=== PATIENT | male | born 1990 ===

== ENCOUNTER 2017-04-22 03:12 | Emergency (ER) | payer MEDICAID ==
[2017-04-22 03:24] VITALS: BMI 39.0
[2017-04-22 03:26] VITALS: TEMP 98.2
--- NOTE | 2017-04-22 03:38 | ED PDOC ---
- ECG O2 Sat by Pulse Oximetry: 99 Disposition - Disposition
--- NOTE | 2017-04-22 03:42 | ED PDOC ---
HPI: Psych/Substance Abuse Time Seen by Provider: 04/22/17 03:30 Chief Complaint (Nursing): Anxiety Chief Complaint (Provider): anxiety History Per: Patient History/Exam Limitations: no limitations Onset/Duration Of Symptoms: Hrs (2) Current Symptoms Are (Timing): Still Present Additional History Per: Patient Additional Complaint(s): 26 y/o male no past medical history presents with feeling anxious x 2 hours. Patient states symptoms started while he was playing video games, about an hour after he took what he thought was 20mg oxycodone that he bought off the street for left "Radial nerve pain" he has been having. Patient describes symptoms as feeling "jittery" with intermittent nausea. Denies fever, headache, dizziness, chest pain, shortness of breath, palpitations, abdominal pain, suicidal/ homicidal ideations, depression. Past Medical History Reviewed: Historical Data, Nursing Documentation, Vital Signs Vital Signs: Last Vital Signs Temp 98.2 F 04/22/17 03:24 Pulse 108 H 04/22/17 03:24 Resp 16 04/22/17 03:24 BP 132/78 04/22/17 03:24 Pulse Ox 99 04/22/17 03:24 - Medical History PMH: No Chronic Diseases - Surgical History Surgical History: No Surg Hx - Family History Family History: States: No Known Family Hx - Social History Current smoker - smoking cessation education provided: No Alcohol: None Drugs: Opiates - Immunization History Hx Tetanus Toxoid Vaccination: Yes (2013) - Home Medications Home Medications: Ambulatory Orders Medication Instructions Recorded RX: No Known Home Med 05/23/15 - Allergies Allergies/Adverse Reactions: Allergies Allergy/AdvReac Type Severity Reaction Status Date / Time No Known Allergies Allergy Verified 04/22/17 03:24 Review of Systems ROS Statement: Except As Marked, All Systems Reviewed And Found Negative Psych: Positive for: Anxiety Physical Exam - Reviewed Nursing Documentation Reviewed: Yes Vital Signs Reviewed: Yes - Physical Exam Appears: Positive for: Well, Non-toxic, Uncomfortable (anxious) Head Exam: Positive for: ATRAUMATIC, NORMAL INSPECTION, NORMOCEPHALIC Skin: Positive for: Normal Color Eye Exam: Positive for: Normal appearance, EOMI ENT: Positive for: Normal ENT Inspection Cardiovascular/Chest: Positive for: Regular Rate, Rhythm Respiratory: Positive for: Normal Breath Sounds Gastrointestinal/Abdominal: Positive for: Normal Exam Back: Positive for: Normal Inspection Extremity: Positive for: Normal ROM Neurologic/Psych: Positive for: Alert, Oriented - ECG ECG: Positive for: Viewed By Me (reviewed by ED attending) ECG Rhythm: Positive for: Sinus Rhythm O2 Sat by Pulse Oximetry: 99 Pulse Ox Interpretation: Normal - Progress ED Course And Treament: ekg, uds, zofran po On re-eval, patient states symptoms improving. Tolerating PO. Patient educated on findings, discharged with instructions to follow up PMD 2-3 days. Return to ED for worsening/concerning symptoms. Disposition - Clinical Impression Clinical Impression: Anxiety, Polysubstance abuse - Patient ED Disposition Is Patient to be Admitted: No Counseled Patient/Family Regarding: Studies Performed, Diagnosis, Need For Followup - Disposition Referrals: Luis Miguel Montilla MD [Primary Care Provider] - Disposition: Routine/Home Disposition Time: 05:16 Condition: IMPROVED Instructions: Anxiety (ED), Polysubstance Abuse (ED)
[2017-04-22 05:24] VITALS: BP 133/78; PULSE 86; RESP 17; O2SAT 100
--- NOTE | 2017-04-22 12:38 | CARD ---
APPROVED REPORT EKG Measurement Heart [id number] <Conclusion> Normal sinus rhythm Normal ECG
== END 2017-04-22 05:20 | disposition home or self-care (01) ==
LOC: H.ER 03:12
DX: F41.9 Anxiety disorder, unspecified (principal); F19.10 Other psychoactive substance abuse, uncomplicated

== ENCOUNTER 2017-05-23 07:31 | Emergency (ER) | payer MEDICAID ==
[2017-05-23 07:40] VITALS: BP 112/69; PULSE 85; RESP 16; TEMP 98; O2SAT 98; BMI 38.0
--- NOTE | 2017-05-23 08:00 | ED PDOC ---
HPI: CCC, URI, Sore Throat Time Seen by Provider: 05/23/17 07:41 Chief Complaint (Provider): Cough History Per: Patient History/Exam Limitations: no limitations Onset/Duration Of Symptoms: Days (x2) Current Symptoms Are (Timing): Still Present Sick Contacts (Context): None Additional Complaint(s): Tomasz is a 26 y/o male who presents to the ED complaining of a sore throat, cough, and congestion, since yesterday. He also reports post-tussive vomiting and chest pain associated with his cough. Patient took Dayquil with no relief. Denies any associated shortness of breath, headache, dizziness. PMD: Provider TBD Past Medical History Reviewed: Historical Data, Nursing Documentation, Vital Signs Vital Signs: Last Vital Signs Temp 98.0 F 05/23/17 07:39 Pulse 85 05/23/17 07:39 Resp 16 05/23/17 07:39 BP 112/69 05/23/17 07:39 Pulse Ox 98 05/23/17 08:12 - Medical History PMH: No Chronic Diseases - Surgical History Surgical History: No Surg Hx - Family History Family History: States: Unknown Family Hx - Social History Current smoker - smoking cessation education provided: No Alcohol: None Drugs: Cannabis - Immunization History Hx Tetanus Toxoid Vaccination: Yes (2013) - Home Medications Home Medications: Ambulatory Orders Medication Instructions Recorded Benzonatate [Tessalon Perles] 100 mg PO BID PRN 5 Days sgl 05/23/17 Ibuprofen [Motrin] 600 mg PO TID 7 Days tab 05/23/17 - Allergies Allergies/Adverse Reactions: Allergies Allergy/AdvReac Type Severity Reaction Status Date / Time No Known Allergies Allergy Verified 04/22/17 03:24 Review of Systems Constitutional: Negative for: Fever, Chills, Weakness ENT: Positive for: Nose Congestion, Throat Pain Cardiovascular: Positive for: Chest Pain (with cough) Respiratory: Positive for: Cough. Negative for: Shortness of Breath Gastrointestinal: Positive for: Nausea, Vomiting (after coughing). Negative for : Diarrhea Neurological: Negative for: Weakness, Numbness, Headache, Dizziness Physical Exam - Reviewed Nursing Documentation Reviewed: Yes Vital Signs Reviewed: Yes - Physical Exam Appears: Positive for: Non-toxic, No Acute Distress Head Exam: Positive for: ATRAUMATIC, NORMAL INSPECTION, NORMOCEPHALIC Skin: Positive for: Normal Color, Warm, Dry Eye Exam: Positive for: EOMI, Normal appearance, PERRL ENT: Positive for: Nasal Congestion. Negative for: Pharyngeal Erythema, Tonsillar Exudate Neck: Positive for: Normal, Painless ROM, Supple Cardiovascular/Chest: Positive for: Regular Rate, Rhythm. Negative for: Murmur Respiratory: Positive for: Normal Breath Sounds. Negative for: Accessory Muscle Use, Respiratory Distress Gastrointestinal/Abdominal: Positive for: Normal Exam, Soft. Negative for: Tenderness Back: Positive for: Normal Inspection. Negative for: L CVA Tenderness, R CVA Tenderness, Vertebral Tenderness Extremity: Positive for: Normal ROM. Negative for: Tenderness, Pedal Edema, Deformity Neurologic/Psych: Positive for: Alert, Oriented. Negative for: Motor/Sensory Deficits - ECG O2 Sat by Pulse Oximetry: 98 (RA) Pulse Ox Interpretation: Normal Medical Decision Making Medical Decision Making: Time: 7:48 Initial Plan: --Motrin 600 mg PO --Tessalon Perles 100 mg PO Clinical Impression: URI Upon provider evaluation patient is medically stable, and requires no further treatment in the ED at this time. Patient will be discharged with Rx's for Motrin and Tessalon Perles. Counseling was provided and all questions were answered regarding diagnosis and need for follow up with PMD. There is agreement to discharge plan. Return if symptoms persist or worsen. Able to swallow with no issues. Scribe Attestation: Documented by Maribell Hicks, acting as a scribe for Ghulam Miner MD Provider Scribe Attestation: All medical record entries made by the Scribe were at my direction and personally dictated by me. I have reviewed the chart and agree that the record accurately reflects my personal performance of the history, physical exam, medical decision making, and the department course for this patient. I have also personally directed, reviewed, and agree with the discharge instructions and disposition. Disposition - Clinical Impression Clinical Impression: URI (upper respiratory infection) - Patient ED Disposition Is Patient to be Admitted: No Counseled Patient/Family Regarding: Diagnosis, Need For Followup, Rx Given - Disposition Referrals: [facility] [Outside] - 05/25/17 Disposition: Routine/Home Disposition Time: 07:48 Condition: STABLE Additional Instructions: Return if not better in 3 days. Prescriptions: Benzonatate [Tessalon Perles] 100 mg PO BID PRN 5 Days sgl PRN Reason: Cough Ibuprofen [Motrin] 600 mg PO TID 7 Days tab Instructions: Upper Respiratory Infection (ED) Forms: [employer] [facility] (Welsh)
== END 2017-05-23 08:15 | disposition home or self-care (01) ==
LOC: H.ER 07:31
DX: J06.9 Acute upper respiratory infection, unspecified (principal)

== ENCOUNTER 2017-08-10 22:18 | Emergency (ER) | payer MEDICAID ==
[2017-08-10 22:18] VITALS: BMI 38.0
[2017-08-10 22:23] VITALS: RESP 16; O2SAT 100
--- NOTE | 2017-08-10 23:04 | ED PDOC ---
- ECG O2 Sat by Pulse Oximetry: 100 Disposition - Disposition
[2017-08-10] MEDS ORDERED: Sodium Chloride 0.9% 1,000 ML IV STA (23:11)
--- NOTE | 2017-08-10 23:22 | ED PDOC ---
HPI: Psych/Substance Abuse Time Seen by Provider: 08/10/17 22:56 Chief Complaint (Nursing): Anxiety Chief Complaint (Provider): anxiety History Per: Patient History/Exam Limitations: no limitations Onset/Duration Of Symptoms: Hrs Current Symptoms Are (Timing): Still Present Additional History Per: Patient Additional Complaint(s): 26 y/o male presents to ED with complaints of feeling anxious. Patient states after eating dinner he started feeling anxious, with associated lightheadedness , backaches, shortness of breath, nausea. Patient states he takes a total of 30mg of recreational Oxycodone daily; states when he tries to stop he gets back pains so he has to take more; last dose 6 hours ago. Denies fever, headache, extremity numbness/weakness, vomiting, chest pain, palpitations, abdominal pain , leg pain/swelling, recent travel, tobacco use, suicidal/homicidal ideations. Past Medical History Reviewed: Historical Data, Nursing Documentation, Vital Signs Vital Signs: Last Vital Signs Temp 98.1 F 08/10/17 22:21 Pulse 120 H 08/10/17 22:21 Resp 16 08/10/17 22:21 BP 153/79 H 08/10/17 22:21 Pulse Ox 100 08/10/17 22:21 - Medical History PMH: No Chronic Diseases - Surgical History Surgical History: No Surg Hx - Family History Family History: States: Unknown Family Hx - Living Arrangements Living Arrangements: With Family - Social History Current smoker - smoking cessation education provided: No Alcohol: None Drugs: Opiates - Immunization History Hx Tetanus Toxoid Vaccination: Yes (2013) - Home Medications Home Medications: Ambulatory Orders Medication Instructions Recorded Benzonatate [Tessalon Perles] 100 mg PO BID PRN 5 Days sgl 05/23/17 Ibuprofen [Motrin] 600 mg PO TID 7 Days tab 05/23/17 - Allergies Allergies/Adverse Reactions: Allergies Allergy/AdvReac Type Severity Reaction Status Date / Time No Known Allergies Allergy Verified 04/22/17 03:24 Review of Systems ROS Statement: Except As Marked, All Systems Reviewed And Found Negative Respiratory: Positive for: Shortness of Breath Gastrointestinal: Positive for: Nausea Psych: Positive for: Anxiety Physical Exam - Reviewed Nursing Documentation Reviewed: Yes Vital Signs Reviewed: Yes - Physical Exam Appears: Positive for: Well, Non-toxic, Uncomfortable (anxious) Head Exam: Positive for: ATRAUMATIC, NORMAL INSPECTION, NORMOCEPHALIC Skin: Positive for: Normal Color Eye Exam: Positive for: Normal appearance ENT: Positive for: Normal ENT Inspection Cardiovascular/Chest: Positive for: Regular Rate, Rhythm Respiratory: Positive for: Normal Breath Sounds Gastrointestinal/Abdominal: Positive for: Normal Exam Back: Positive for: Normal Inspection Extremity: Positive for: Normal ROM Neurologic/Psych: Positive for: Alert, Oriented - Laboratory Results Result Diagrams: 08/10/17 23:43 08/10/17 23:43 - ECG ECG: Positive for: Viewed By Me (reviewed by ED attending) ECG Rhythm: Positive for: Sinus Rhythm O2 Sat by Pulse Oximetry: 100 - Progress ED Course And Treament: labs, ekg, IV fluids, crisis eval Patient evaluated by [employer]; does not meet criteria for admission at this time as per Dr. Shaffer; outpatient appt given. On re-eval, patient states he is feeling better. Patient discharged with instructions to follow up as scheduled. Return precautions given. Disposition - Clinical Impression Clinical Impression: Anxiety, Substance abuse - Patient ED Disposition Is Patient to be Admitted: No Counseled Patient/Family Regarding: Studies Performed, Diagnosis, Need For Followup - Disposition Disposition: Routine/Home Disposition Time: 02:41 Condition: IMPROVED Instructions: Anxiety (ED), Narcotic Abuse (ED)
[2017-08-10 23:47] LABS: BASO # 0.1 K/uL (0.0-0.2); BASO % 0.5 % (0.0-2.0); EOS # 0.1 K/uL (0.0-0.7); EOS % 1.1 % (0.0-4.0); HEMOGLOBIN 13.6 g/dL (12.0-18.0); LYMPH # 2.7 K/uL (1.0-4.3); LYMPH % 24.8 % (20.0-40.0); MEAN CELL VOLUME 90.6 fl (80.0-94.0); MEAN CORPUSCULAR HEMOGLOBIN 29.5 pg (27.0-31.0); MEAN CORPUSCULAR HGB CONC 32.6 g/dL (33.0-37.0); MEAN PLATELET VOLUME 9.3 fl (7.2-11.7); MONO # 0.7 K/uL (0.0-0.8); MONO % 6.1 % (0.0-10.0); NEUT # 7.4 K/uL (1.8-7.0); NEUT % 67.5 % (50.0-75.0); NRBC % 0.1 % (0.0-0.0); RBC 4.6 Mil/uL (4.40-5.90); RED CELL DISTRIBUTION WIDTH 12.6 % (11.5-14.5)
[2017-08-11 00:01] LABS: ALBUMIN 4.4 g/dL (3.5-5.0); ALT/SGPT 73 U/L (21-72); AST/SGOT 39 U/L (17-59); BLOOD UREA NITROGEN 11 mg/dl (9-20); CALCIUM 9.5 mg/dL (8.4-10.2); GFR AFRICAN-AMERICAN > 60; GFR NON-AFRICAN AMERICAN > 60
[2017-08-11 00:03] LABS: ALB/GLOB RATIO 1.1 (1.0-2.1)
[2017-08-11 00:05] LABS: BARBITURATES, UR NEGATIVE (NEGATIVE); BENZODIAZEPINES, UR NEGATIVE (NEGATIVE); OPIATES, UR POSITIVE (NEGATIVE); PHENCYCLIDINE, UR NEGATIVE (NEGATIVE)
[2017-08-11 02:44] VITALS: BP 154/87; PULSE 85; TEMP 98.3
--- NOTE | 2017-08-11 08:09 | CARD ---
APPROVED REPORT EKG Measurement Heart [id number] <Conclusion> Normal sinus rhythm Normal ECG
== END 2017-08-11 02:49 | disposition home or self-care (01) ==
LOC: H.ER 22:18
DX: F41.9 Anxiety disorder, unspecified (principal); F19.10 Other psychoactive substance abuse, uncomplicated
CPT/HCPCS: 80053; 80324; 80345; 80346; 80349; 80353; 80358; 80361; 83992; 85025; 93005; 96374; 99282; J2405; J7040